=== PATIENT | female | born 1970 | race Caucasian/White ===

== ENCOUNTER 2019-09-30 10:43 | Emergency (ER) | payer OTHER ==
[~2019-09-30] VITALS: Ht 157.5 cm; Wt 98.9 kg
[2019-09-30] MEDS ORDERED: GRALISE600 MG PO (10:58)
[2019-09-30] MEDS ORDERED: ZEBUTAL 50-3251 EACH PO (10:58)
[2019-09-30] MEDS ORDERED: RESTORIL30 MG PO (10:59)
[2019-09-30] MEDS ORDERED: BACLOFEN20 MG PO (10:59)
[2019-09-30] MEDS ORDERED: CLONAZEPAM1 GM PO (11:00)
[2019-09-30] MEDS ORDERED: DOXEPIN HC10 MG/1 ML PO (11:00)
[2019-09-30] MEDS ORDERED: INTESTINEX680 M1 PO (14:45)
[2019-09-30] MEDS ORDERED: ZITHROMAX500 MG PO (14:45)
== END 2019-09-30 15:30 | disposition home or self-care (01) ==
LOC: ER 10:43
DX: R51 Headache (principal); R42 Dizziness and giddiness; B96.0 Mycoplasma pneumoniae [M. pneumoniae] as the cause of diseases classified elsewhere; Z03.818 Encounter for observation for suspected exposure to other biological agents ruled out